=== PATIENT | male | born 1990 | race Caucasian/White ===

== ENCOUNTER 2016-06-18 03:38 | Emergency (ER) | payer SELFPAY ==
[~2016-06-18] VITALS: Ht 188 cm; Wt 78.0 kg
[~2016-06-18 03:38] MED LIST: BACT800T5 PO; CEPH-460 PO; ERYT.5%O EACH EYE; IBUP800T23 PO; PERC5TAB12 PO
[2016-06-18 03:40] VITALS: BP 146/86; PULSE 107; RESP 16; TEMP 98.2; O2SAT 99
[2016-06-18] MEDS ORDERED: DICL75TA PO (03:53)
[2016-06-18] MEDS ORDERED: HYDR-3533 PO (03:53)
[2016-06-18] MEDS ORDERED: ROBA750T PO (03:53)
[2016-06-18] MEDS ORDERED: MORPHINE SULFATE 8 MG/ML INJ IM ONE (04:00)
[2016-06-18] MEDS ORDERED: ONDANSETRON ODT 4 MG TAB PO ONE (04:00)
[2016-06-18] MEDS ORDERED: ORPHENADRINE INJ 60 MG/2 ML AMP IM ONE (04:00)
--- NOTE | 2016-06-18 04:01 | PD ---
HPI Chief Complaint: Back/ Neck Pain or Injury Time Seen by Provider: 03:57 Travel History International Travel<30 days: No Contact w/Intl Traveler<30days: No Traveled to known affect area: No History of Present Illness HPI 26-year-old white male presents to emergency department with complains of severe back pain and spasm. He states that 2 days ago he pulled his back. He states that he went to a chiropractor earlier today and had an adjustment which seemed to help until he had applied a TENS unit. He states that after having the TENS unit on he developed some back spasms.. He states that approximately 2 hours prior to arrival the pain became very severe. Worse with movement. History of sciatica in the past. No acute bowel or bladder changes. PFSH Past Medical History Narrative Medical Sciatica Hx Anticoagulant Therapy: No Cardiovascular Problems: No Chemotherapy: No Cerebrovascular Accident: No Diabetes: No Diminished Hearing: No Respiratory: No Immunizations Current: Yes Tetanus Vaccination: < 5 Years Past Surgical History Narrative Surgical Removal of a left neck lymph node Other Surgery: Yes (NODE REMOVED FROM LEFT SIDE OF NECK) Social History Alcohol Use: Yes (socially) Tobacco Use: Yes (1PPD) Substance Use: Yes (MARIJUANA) Allergies-Medications (Allergen,Severity, Reaction): Coded Allergies: No Known Allergies (Verified , 06/18/16) Reported Meds & Prescriptions Reported Meds & Active Scripts Active Diclofenac Sodium DR (Diclofenac Sodium) 75 Mg Tabdr 75 Mg PO BID Robaxin (Methocarbamol) 750 Mg Tab 1,500 Mg PO TID 10 Days Lortab (Hydrocodone-Acetaminophen) 5-325 Mg Tab 1 Tab PO Q4H PRN Review of Systems Except as stated in HPI: all other systems reviewed are Neg Physical Exam Narrative GENERAL: Well-developed, well-nourished in no apparent distress. Nontoxic appearing. HEAD: Normocephalic, atraumatic. EYES: Pupils equal round and reactive. Extraocular motions intact. No scleral icterus. No injection or drainage. ENT: Nose clear. Throat without erythema, tonsillar hypertrophy or exudate. Uvula midline. Airway patent. NECK: Trachea midline. Supple, nontender, moves head freely. No central bony tenderness or spasm. CARDIOVASCULAR: Regular rate and rhythm without murmurs, gallops, or rubs. RESPIRATORY: Clear to auscultation. Breath sounds equal bilaterally. No wheezes , rales, or rhonchi. GASTROINTESTINAL: Abdomen soft, non-tender, nondistended. No hepato-splenomegaly , or palpable masses. No guarding. EXTREMITIES: No clubbing, cyanosis, or edema. No joint tenderness. BACK: No central bony tenderness to palpation of dorsal lumbar spine. Patient has left lower lumbar tenderness and spasm. Decreased range of motion. No saddle anesthesia. Without deformity. No flank tenderness. NEUROLOGICAL: Awake, alert and oriented x 3 .Cranial nerves grossly intact. Motor and sensory grossly within normal limits. Normal speech. Data Data Last Documented VS Vital Signs Date Time Temp Pulse Resp B/P Pulse Ox O2 Delivery O2 Flow Rate FiO2 06/18/16 03:40 98.2 107 16 146/86 99 Room Air Orders Ondansetron Odt (Zofran Odt) (06/18/16 04:00) Morphine Inj (Morphine Inj) (06/18/16 04:00) Orphenadrine Inj (Norflex Inj) (06/18/16 04:00) MDM Medical Decision Making Medical Screen Exam Complete: Yes Emergency Medical Condition: Yes Medical Record Reviewed: Yes Differential Diagnosis MDM: High Differential diagnoses: AAA,Fracture, sprain, strain, HNP, nerve or vascular injury, epidural abscess, pilonidal cyst, pyelonephritis, UTI, nephrolithiasis, ureterolithiasis Narrative Course This is acute back strain with spasm Patient's given morphine 8 mg, Norflex 60 mg IM. Zofran 4 mg by mouth. Diagnosis Primary Impression: acute lumbar strain with spasm Patient Instructions: Narcotic given in the ED, General Instructions Departure Forms: Tests/Procedures, Work Release Special Instructions: No work 3 days. Additional Instructions: Rest. Ice for the next 3 days followed by heat . Lortab, Robaxin and Voltaren. Follow-up with a primary care doctor in one week. Return to the ER for emergencies. Med/Other Pt SpecificInfo: Prescription(s) given Scripts Diclofenac Sodium DR 75 Mg Tabdr75 Mg PO BID #20 TAB Prov:Abbey Walter MD 06/18/16 Methocarbamol (Robaxin)750 Mg Tab1,500 Mg PO TID 10 Days Prov:Abbey Walter MD 06/18/16 Hydrocodone-Acetaminophen (Lortab)5-325 Mg Tab1 Tab PO Q4H PRN (PAIN) #20 TAB Prov:Abbey Walter MD 06/18/16 Disposition: 01 DISCHARGE HOME Condition: Stable Yandel Garcia June 18, 2016 04:01
== END 2016-06-18 04:54 | disposition home or self-care (01) ==
LOC: NEPK 03:38
DX: S39.012A Strain of muscle, fascia and tendon of lower back, initial encounter (principal); M62.830 Muscle spasm of back; F17.210 Nicotine dependence, cigarettes, uncomplicated; F12.90 Cannabis use, unspecified, uncomplicated; X50.9XXA Other and unspecified overexertion or strenuous movements or postures, initial encounter
CPT/HCPCS: 96372; 99283; J2270; J2360